=== PATIENT | female | born 1960 | race Caucasian/White ===

== ENCOUNTER → 2016-12-05 | Outpatient (CLI) | payer OTHER ==
--- NOTE | 2016-12-05 15:13 | REPMRS ---
Patient History The patient states she had a clinical breast exam in Patient has history of other cancer at age 53. No known family history of cancer. Benign excisional biopsy of the left breast, 2005. Took hormonal contraceptives for 4 years. Digital Woman Screen Mammo: December 05, 2016 - Exam #: [id number] Bilateral CC and MLO view(s) were taken. Technologist: Nancy Sykes, Technologist Prior study comparison: November 30, 2015, digital woman screen mammo performed at [facility]. November 03, 2014, digital woman screen mammo performed at [facility]. FINDINGS: There are scattered fibroglandular densities. There has been no change in the appearance of the mammogram from the prior studies. There is a moderate amount of residual fibroglandular tissue which is fairly symmetric. There is no interval development of dominant mass, architectural distortion, or clustered microcalcification suggestive of malignancy. There are scattered, small, benign calcifications of doubtful clinical significance. There is a stereotactic clip in upper outer quadrant left breast, unchanged. No significant changes when compared with prior studies. ASSESSMENT: BI-RADS/ACR category 2 mammogram. Benign finding(s). Recommendation Routine screening mammogram in 1 year (for women over age 40). This mammogram was interpreted with the aid of an FDA-approved computer-aided dectection system. A. Negative x-ray reports should not delay biopsy if a dominant or clinically suspicious mass is present. B. Four to eight percent of cancers are not identified by mammography. C. Adenosis and dense breast may obscure an underlying neoplasm. Electronically Signed By: Jens Platt MD 12/05/16 [id number]
== END ==
LOC: M WHC 12:52
PROVIDERS: ATTEND Obstetrics & Gynecology
DX: Z12.31 Encounter for screening mammogram for malignant neoplasm of breast (principal)

== ENCOUNTER → 2016-12-16 | Outpatient (REF) | payer OTHER ==
[2016-12-16 13:41] LABS: FOLATE 10.4 NG/ML; VITAMIN B12 LEVEL 991 PG/ML
[2016-12-16 13:49] LABS: BLOOD UREA NITROGEN 14 MG/DL (7-18); CREATININE FOR GFR 0.79 MG/DL (0.55-1.02); GLOMERULAR FILTRATION RATE > 60.0 (>51); TOTAL PROTEIN 7.4 GM/DL (6.4-8.2)
[2016-12-19 12:43] LABS: ALBUMIN 4.59 GM/DL (3.29-5.55); GAMMA GLOBULIN % 13.5 % (11.1-18.8)
[2016-12-20 00:06] LABS: VITAMIN E LEVEL 10.8 mg/L (5.3-16.8)
== END ==
LOC: M LABNEURO 13:01
PROVIDERS: ATTEND Psychiatry & Neurology Neurology
DX: Z13.1 Encounter for screening for diabetes mellitus (principal); Z13.228 Encounter for screening for other metabolic disorders

== ENCOUNTER → 2017-03-21 | Outpatient (CLI) | payer OTHER ==
--- NOTE | 2017-03-22 01:51 | REP ---
Clinical: Spondylosis. Technique: AP, lateral, bilateral oblique, flexion/extension and coned-down views of the lumbosacral spine. Findings: No acute fracture / compression injury. Grade 1 anterolisthesis at the L4-5 level of approximately 6.5 mm appears chronic with associated hypertrophic facet changes, minimal endplate sclerosis and subtle anterior spurring. Moderate multilevel degenerative changes include endplate sclerosis, disc space narrowing, and marginal osteophytes. Impression: Grade 1 anterolisthesis at the L4-5 level appears chronic. Early moderate multilevel degenerative changes. No acute fracture / compression injury. Signed by Tristan Herrera MD 03/22/2017 01:43 A
--- NOTE | 2017-03-22 05:05 | REP ---
Clinical: Spondylosis. Technique: AP, lateral, flexion/extension, bilateral oblique, and open-mouth views. Findings: Advanced degenerative disc osteophyte complex at the C5-6, C6-7 levels with moderate degenerative changes at the C4-5 and C7-T1 levels. Findings include osteophytosis, endplate sclerosis/irregularity and disc space narrowing. Reversal of normal lordosis on neutral view noted. No acute fracture / compression injury or subluxation. Oblique views demonstrate patent neural foramen. Open mouth view demonstrates normal C1-C2 articulation and odontoid process. Impression: Moderate and advanced degenerative disc osteophyte complexes. Signed by Tristan Herrera MD 03/22/2017 04:56 A
== END ==
LOC: M RAD 16:53 → M LAB 16:53
PROVIDERS: ATTEND Neurological Surgery
DX: M47.892 Other spondylosis, cervical region (principal)

== ENCOUNTER → 2017-05-11 | Outpatient (CLI) | payer OTHER ==
--- NOTE | 2017-05-12 10:23 | REP ---
REASON: Spondylosis and neck pain. COMPARISON: None. There is a cervical kyphosis. There is moderate to severe disc space height loss along with anterior and posterior osteophytic ridging seen at the C5-6 and C6-7 levels. The apex of the kyphosis is at C5-6. Air density is seen in the C5-6 disc space consistent with vacuum phenomena from degenerative disc disease. The facet joints are well aligned bilaterally. There is no evidence of an acute cervical spine fracture. At the C2-3 level, there is mild degenerative facet joint change on the left. There is no right foraminal narrowing or central canal stenosis. The afore mentioned arthritis changes do cause mild left foraminal stenosis. At the C3-4 level, there is no bony cause of foraminal narrowing or central canal stenosis. At the C4-5 level, mild degenerative facet joint changes are present bilaterally with mild degenerative uncovertebral joint changes. There is no bony cause of foraminal narrowing or central canal stenosis. At the C5-6 level, there is a broad based bulge seen in conjunction with posterior spondylotic bar formation. Degenerative facet and uncovertebral joint changes are present at this level bilaterally and the factors in concert are causing bilateral foraminal stenosis and central canal stenosis. The degree of cord compression cannot be determined by CT, however, the central canal does appear moderately stenotic. At the C6-7 level, a broad based annular bulge is present with a posterior spondylotic bar. Degenerative facet and uncovertebral joint changes are present bilaterally and the factors in concert are giving rise to mild bilateral foraminal stenosis and mild to moderate central canal stenosis, the extent of which cannot be precisely determined by this exam. At the C7-T1 level, there is no abnormality. CT cannot rule out an acute disc extrusion. I suspect at least covered discs due to disc osteophyte complex at the C5-6 and C6-7 levels. IMPRESSION: Chronic changes as described above. Signed by Gagan Booker DO 05/12/2017 10:51 A
--- NOTE | 2017-05-12 10:37 | REP ---
REASON: Back pain. COMPARISON: None. Vertebral body height is within normal limits throughout. There is a grade 1 L4 upon L5 spondylolisthesis. The disc spaces are symmetric and relatively well maintained throughout. Partial syndesmophyte formation is seen bilaterally at every level but particularly the upper lumbar level and seen in conjunction with mild anterior lipping. CT cannot rule out an acute disc extrusion. At the T12-L1 level, no abnormality is noted. At L1-2, there is no bony cause of foraminal narrowing or central canal stenosis. There is no evidence of a significant broad based annular bulge. At L2-3, there is no bony cause of foraminal narrowing or central canal stenosis. A mild broad based annular bulge is suspected with mild thickening of the ligamentum flava and slight degenerative facet joint change. At L3-4, there is a broad based annular bulge seen in conjunction with degenerative facet joint changes which are mild bilaterally with mild thickening of the ligamentum flava. No definite central canal stenosis or foraminal narrowing is seen by a bony cause. At L4-5, there is a broad based annular bulge which does appear to mildly compression the anterior thecal sac. There is no bony cause of foraminal narrowing. Degenerative facet joint changes are present at this level bilaterally with thickening of the ligamentum flava and mild central canal stenosis is suspected. At L5-S1, mild degenerative facet joint changes are present bilaterally with mild thickening of the ligamentum flava. A mild broad based annular bulge is suspected but there is no bony cause of foraminal narrowing or central canal stenosis and the anterior surface of the thecal sac does not appear to be compressed. IMPRESSION: Multilevel chronic changes as described above. Signed by Gagan Booker DO 05/12/2017 10:51 A
== END ==
LOC: M RAD 16:18
PROVIDERS: ATTEND Neurological Surgery
DX: R06.00 Dyspnea, unspecified (principal); M50.30 Other cervical disc degeneration, unspecified cervical region; M40.202 Unspecified kyphosis, cervical region
CPT/HCPCS: 70491; 71260; 72126; 72131; Q9967

== ENCOUNTER → 2017-05-11 | Outpatient (CLI) | payer OTHER ==
[~2017-05-11] MED LIST: ISOVUE-370 76% 100ML VIAL (Q9967) As Ordered ONE
--- NOTE | 2017-05-12 05:18 | REP ---
Clinical: Dyspnea. Dysphonia. Technique: Axial contrast enhanced images from the thoracic inlet to the upper abdomen using 100 ml Isovue 370 intravenous contrast material with coronal and sagittal re-formations. Comparison: 10/10/2012. Findings: Bilateral lung chavez are well-aerated, clear, and without consolidation, nodule or mass lesion. No pleural effusion/reaction or pneumothorax. Tracheobronchial tree is patent. Mediastinum demonstrates normal thoracic aorta and heart/pericardium. No aortic aneurysm, cardiomegaly or pericardial effusion appreciated. Few prominent mediastinal lymph nodes measure up to 9 mm short axis diameter and are relatively similar to prior examination/nonspecific. No mediastinal mass lesion identified. Surrounding musculoskeletal structures are intact and normal for age. No focal osseous abnormality noted. Limited evaluation of the upper abdomen demonstrates normal bilateral adrenal glands. Impression: Essentially normal contrast enhanced chest CT. No acute mediastinal or pleuroparenchymal process appreciated. Few mildly prominent lymph nodes in the mediastinum are similar to prior examination of 2011. Signed by Tristan Herrera MD 05/12/2017 05:10 A
--- NOTE | 2017-05-12 10:27 | REP ---
REASON FOR EXAM: Dysphonia. COMPARISON: None. CONTRAST: 100 mL Isovue 370. The suprahyoid neck: The parapharyngeal, retropharyngeal, pharyngomucosal, carotid, automation and controls instructor, and parotid spaces are within normal limits. The prevertebral and paraspinal components of the perivertebral space are within normal limits. There is spray artifact from dental amalgam obscuring multiple images. The infrahyoid neck: The aforementioned neck spaces along with the posterior cervical space are within normal limits. IMPRESSION: Findings, as described above, are within normal limits. Signed by Gagan Booker DO 05/12/2017 10:51 A
== END | disposition home or self-care (01) ==
LOC: M RAD 16:23
PROVIDERS: ATTEND Internal Medicine
DX: R06.00 Dyspnea, unspecified (principal)

== ENCOUNTER → 2017-12-07 | Outpatient (CLI) | payer OTHER | LOC: M WHC 06:50 | DX: Z12.31 Encounter for screening mammogram for malignant neoplasm of breast (principal); Z78.0 Asymptomatic menopausal state; Z98.890 Other specified postprocedural states; Z92.0 Personal history of contraception | CPT/HCPCS: 77067 ==

== ENCOUNTER → 2018-12-10 | Outpatient (CLI) | payer OTHER ==
--- NOTE | 2018-12-11 08:58 | REPMRS ---
Patient History The patient states she had a clinical breast exam in 10/02 No known family history of cancer. Benign excisional biopsy of the left breast, 2005. Took hormonal contraceptives for 4 years. Digital Woman Screen Mammo: December 10, 2018 - Exam #: [id number] Bilateral CC and MLO view(s) were taken. Technologist: Pauline Saldana, Technologist Prior study comparison: December 07, 2017, digital woman screen mammo performed at [facility]. December 05, 2016, digital woman screen mammo performed at [facility]. FINDINGS: There are scattered fibroglandular densities. A needle biopsy marker clip is again noted superiorly in the left breast. There is a moderate amount of residual fibroglandular tissue which is fairly symmetric. There is no interval development of dominant mass, architectural distortion, or clustered microcalcification typical of malignancy. There has been no change in the appearance of the mammogram from the prior studies. Assessment: BI-RADS/ACR category 2 mammogram. Benign Findings. Recommendation Routine screening mammogram of both breasts in 1 year (for women over age 40). This patient's Lifetime Breast Cancer RIsk is estimated at 11.5 %. This mammogram was interpreted with the aid of an FDA-approved computer-aided dectection system. Electronically Signed By: Efren Zuniga MD 12/11/18 [id number]
== END ==
LOC: M WHC 15:24
PROVIDERS: ATTEND Obstetrics & Gynecology
DX: Z12.31 Encounter for screening mammogram for malignant neoplasm of breast (principal); Z86.018 Personal history of other benign neoplasm; Z92.0 Personal history of contraception

== ENCOUNTER → 2019-05-31 | Outpatient (CLI) | payer OTHER ==
[2019-05-31 07:45] LABS: BASO # 0.1 10^3/uL (0.0-0.2); EOS # 0.2 10^3/uL (0.0-0.50); EOS % 2.7 % (0.0-3.0); HEMATOCRIT 41.8 % (36.0-47.0); HEMOGLOBIN 14.4 g/dl (12.0-15.5); LYMPH # 2.7 10^3/uL (1.5-4.5); LYMPH % 36.6 % (24.0-44.0); MEAN CORPUSCULAR HEMOGLOBIN 32.2 pg (27.0-33.0); MEAN CORPUSCULAR HGB CONC 34.4 g/dl (32.0-36.5); MEAN CORPUSCULAR VOLUME 93.5 fl (80.0-96.0); MONO # 0.8 10^3/uL (0.0-0.8); MONO % 10.2 % (0.0-5.0); NEUTROPHILS # 3.6 10^3/uL (1.8-7.7); NEUTROPHILS % 49.2 % (36.0-66.0); PLATELET COUNT, AUTOMATED 332 10^3/uL (150-450); RED BLOOD COUNT 4.47 10^6/uL (4.00-5.40); WHITE BLOOD COUNT 7.3 10^3/uL (4.0-10.0)
[2019-05-31 08:06] LABS: ALBUMIN 4.1 GM/DL (3.2-5.2); ALT/SGPT 32 U/L (12-78); BILIRUBIN,TOTAL 0.6 MG/DL (0.2-1.0); BLOOD UREA NITROGEN 14 MG/DL (7-18); CALCIUM LEVEL 9.4 MG/DL (8.5-10.1); CARBON DIOXIDE LEVEL 31 MEQ/L (21-32); CHLORIDE LEVEL 101 MEQ/L (98-107); CHOLESTEROL LEVEL 217 MG/DL (<200); CHOLESTEROL RISK RATIO 3.444 (<5); CREATININE FOR GFR 0.86 MG/DL (0.55-1.30); GLOMERULAR FILTRATION RATE > 60.0 (>51); GLUCOSE, FASTING 93 MG/DL (70-100); HDL CHOLESTEROL 63 MG/DL (>40); LDL CHOLESTEROL 138 MG/DL (<100); NON-HDL-C 154 MG/DL; POTASSIUM SERUM 4.3 MEQ/L (3.5-5.1); SODIUM LEVEL 138 MEQ/L (136-145); TOTAL PROTEIN 7.3 GM/DL (6.4-8.2); TRIGLYCERIDES LEVEL 82 MG/DL (<150)
== END ==
LOC: M LAB 06:53
PROVIDERS: ATTEND Nurse Practitioner Family
DX: I10 Essential (primary) hypertension (principal)

== ENCOUNTER → 2019-12-20 | Outpatient (CLI) | payer OTHER ==
--- NOTE | 2019-12-20 17:12 | REPMRS ---
Patient History The patient states she had a clinical breast exam in November 2019.No known family history of cancer. Benign excisional biopsy of the left breast, 2006. Took hormonal contraceptives for 4 years. Digital Woman Screen Mammo: December 20, 2019 - Exam #: [id number] Bilateral CC and MLO view(s) were taken. Technologist: Ruth Pineda, Technologist Prior study comparison: December 10, 2018, bilateral digital woman screen mammo performed at [facility]. December 07, 2017, digital woman screen mammo performed at [facility]. December 05, 2016, digital woman screen mammo performed at [facility]. FINDINGS: There are scattered fibroglandular densities. There is a needle biopsy marker clip again noted in the left breast. There has been no change in the appearance of the mammogram from the prior studies. There is a mild amount of scattered fibroglandular density which is fairly symmetric. There is no interval development of dominant mass, architectural distortion, or grouped microcalcification suggestive of malignancy. 3-D tomosynthesis shows no additional findings. Assessment: BI-RADS/ACR category 2 mammogram. Benign Findings. Recommendation Routine screening mammogram of both breasts in 1 year (for women over age 40). This patient's Lifetime Breast Cancer Risk is estimated at 11.2 %. This mammogram was interpreted with the aid of an FDA-approved computer-aided dectection system. Electronically Signed By: Efren Zuniga MD 12/20/19 [id number]
--- NOTE | 2019-12-27 09:29 | DEXA ---
AP SPINE L1 - L4 1.503 -2.5 3.7 LT FEMUR TOTAL 0.984 -0.2 0.7 LT NECK 0.953 -0.6 0.6 RT FEMUR TOTAL 1.068 0.5 1.4 RT NECK 1.036 0.0 1.2 TOTAL BODY TOTAL OTHER COMMENTS: Normal bone densitometry of the spine and hips. The density of the spine has decreased 1.2% since 08/11/2010. The density of the left hip has decreased 6.4% since 08/11/2010. The density of the right hip has decreased 5.2% since 08/11/2010. FOLLOW-UP: Recommendation for the next bone density exam: 5 years. KAN
== END ==
LOC: M WHC 14:27
PROVIDERS: ATTEND Obstetrics & Gynecology
DX: Z12.31 Encounter for screening mammogram for malignant neoplasm of breast (principal); Z13.820 Encounter for screening for osteoporosis

== ENCOUNTER → 2020-02-28 | Outpatient (CLI) | payer OTHER ==
--- NOTE | 2020-02-28 10:32 | REPPI ---
KNEE: REASON FOR EXAM: Atraumatic pain. FINDINGS: The compartments are symmetric and relatively well maintained. There is no acute fracture or destructive osseous lesion. Electronically Signed by Gagan Booker DO 02/28/2020 10:58 A
== END ==
LOC: M PLAIMG 08:49
PROVIDERS: ATTEND Physician Assistant Medical
DX: M25.562 Pain in left knee (principal)
CPT/HCPCS: 73564; G0463

== ENCOUNTER → 2020-08-31 | Outpatient (CLI) | payer OTHER ==
[2020-08-31 07:09] LABS: BASO # 0.1 10^3/uL (0.0-0.2); BASO % 0.9 % (0.0-1.0); EOS # 0.3 10^3/uL (0.0-0.5); HEMATOCRIT 41.6 % (36.0-47.0); HEMOGLOBIN 14.1 g/dl (12.0-15.5); LYMPH # 3.1 10^3/uL (1.5-5.0); LYMPH % 40.1 % (24.0-44.0); MEAN CORPUSCULAR HEMOGLOBIN 31.5 pg (27.0-33.0); MEAN CORPUSCULAR HGB CONC 33.9 g/dl (32.0-36.5); MEAN CORPUSCULAR VOLUME 92.9 fl (80.0-96.0); MONO # 0.8 10^3/uL (0.0-0.8); MONO % 10.1 % (0.0-5.0); NEUTROPHILS # 3.5 10^3/uL (1.5-8.5); NEUTROPHILS % 44.6 % (36.0-66.0); PLATELET COUNT, AUTOMATED 319 10^3/uL (150-450); RED BLOOD COUNT 4.48 10^6/uL (4.00-5.40); WHITE BLOOD COUNT 7.8 10^3/uL (4.0-10.0)
[2020-08-31 07:33] LABS: ALT/SGPT 33 U/L (12-78); BILIRUBIN,TOTAL 0.7 MG/DL (0.2-1.0); BLOOD UREA NITROGEN 19 MG/DL (7-18); CALCIUM LEVEL 9.1 MG/DL (8.8-10.2); CARBON DIOXIDE LEVEL 31 MEQ/L (21-32); CHLORIDE LEVEL 101 MEQ/L (98-107); CHOLESTEROL LEVEL 212 MG/DL (<200); CHOLESTEROL RISK RATIO 3.655 (<5); CREATININE FOR GFR 0.92 MG/DL (0.55-1.30); GLOMERULAR FILTRATION RATE > 60.0 (>45); GLUCOSE, FASTING 103 MG/DL (70-100); HDL CHOLESTEROL 58 MG/DL (>40); LDL CHOLESTEROL 136 MG/DL (<100); NON-HDL-C 154 MG/DL; POTASSIUM SERUM 3.8 MEQ/L (3.5-5.1); SODIUM LEVEL 137 MEQ/L (136-145); TOTAL PROTEIN 7.3 GM/DL (6.4-8.2); TRIGLYCERIDES LEVEL 91 MG/DL (<150)
== END ==
LOC: M LAB 06:21
PROVIDERS: ATTEND Nurse Practitioner Family
DX: I10 Essential (primary) hypertension (principal); Z13.220 Encounter for screening for lipoid disorders

== ENCOUNTER → 2020-12-22 | Outpatient (CLI) | payer OTHER ==
--- NOTE | 2020-12-22 09:38 | REPMRS ---
Patient History The patient states she had a clinical breast exam in 11/2020 Patient is postmenopausal and has history of other cancer at age 53. No known family history of cancer. Benign excisional biopsy of the left breast, 2006. Took hormonal contraceptives for 4 years. Digital Woman Screen Mammo: December 22, 2020 - Exam #: [id number] Bilateral CC and MLO view(s) were taken. Technologist: Pauline Saldana, Technologist Prior study comparison: December 20, 2019, bilateral digital woman screen mammo performed at [facility]. December 10, 2018, bilateral digital woman screen mammo performed at [facility]. December 07, 2017, digital woman screen mammo performed at [facility]. FINDINGS: There are scattered fibroglandular densities. The Volpara volumetric breast density category is:B. There is a needle biopsy marker clip in the left breast. There has been no change in the appearance of the mammogram from the prior studies. There is a mild amount of scattered fibroglandular density which is fairly symmetric. There is no interval development of dominant mass, architectural distortion, or grouped microcalcification suggestive of malignancy. 3-D tomosynthesis shows no additional findings. Assessment: BI-RADS/ACR category 2 mammogram. Benign Findings. Recommendation Routine screening mammogram of both breasts in 1 year (for women over age 40). This patient's [facility] Lifetime Breast Cancer Risk is estimated at 10.8 %. This mammogram was interpreted with the aid of an FDA-approved computer-aided dectection system. Electronically Signed By: Efren Zuniga MD 12/22/20 [id number]
== END ==
LOC: M WHC 06:54
PROVIDERS: ATTEND Obstetrics & Gynecology
DX: Z12.31 Encounter for screening mammogram for malignant neoplasm of breast (principal); Z78.0 Asymptomatic menopausal state; Z85.9 Personal history of malignant neoplasm, unspecified

== ENCOUNTER → 2021-11-01 | Outpatient (CLI) | payer OTHER | LOC: M LABSMTC 13:08 | PROVIDERS: ATTEND Pediatrics | DX: Z20.822 Contact with and (suspected) exposure to COVID-19 (principal) | CPT/HCPCS: C9803; U0003 ==

== ENCOUNTER → 2021-11-16 | Outpatient (CLI) | payer OTHER ==
[2021-11-16 06:35] LABS: BASO # 0.1 10^3/uL (0.0-0.2); BASO % 0.8 % (0.0-1.0); EOS # 0.2 10^3/uL (0.0-0.5); EOS % 2.3 % (0.0-3.0); HEMOGLOBIN 14.1 g/dl (12.0-15.5); LYMPH # 3.1 10^3/uL (1.5-5.0); LYMPH % 35.9 % (24.0-44.0); MEAN CORPUSCULAR HEMOGLOBIN 30.9 pg (27.0-33.0); MEAN CORPUSCULAR HGB CONC 34.4 g/dl (32.0-36.5); MEAN CORPUSCULAR VOLUME 89.7 fl (80.0-96.0); MONO # 0.8 10^3/uL (0.0-0.8); NEUTROPHILS # 4.4 10^3/uL (1.5-8.5); NEUTROPHILS % 51.8 % (36.0-66.0); PLATELET COUNT, AUTOMATED 332 10^3/uL (150-450); RED BLOOD COUNT 4.57 10^6/uL (4.00-5.40); WHITE BLOOD COUNT 8.6 10^3/uL (4.0-10.0)
[2021-11-16 07:25] LABS: ALT/SGPT 32 U/L (12-78); BILIRUBIN,TOTAL 0.5 MG/DL (0.2-1.0); BLOOD UREA NITROGEN 29 MG/DL (7-18); CALCIUM LEVEL 9.8 MG/DL (8.8-10.2); CARBON DIOXIDE LEVEL 31 MEQ/L (21-32); CHLORIDE LEVEL 103 MEQ/L (98-107); CHOLESTEROL LEVEL 197 MG/DL (<200); CREATININE FOR GFR 0.82 MG/DL (0.55-1.30); GLOMERULAR FILTRATION RATE > 60.0 (>45); GLUCOSE, FASTING 107 MG/DL (70-100); HDL CHOLESTEROL 49 MG/DL (>40); LDL CHOLESTEROL 114 MG/DL (<100); NON-HDL-C 148 MG/DL; POTASSIUM SERUM 3.7 MEQ/L (3.5-5.1); SODIUM LEVEL 141 MEQ/L (136-145); TOTAL PROTEIN 7.5 GM/DL (6.4-8.2); TRIGLYCERIDES LEVEL 170 MG/DL (<150)
[2021-11-16 09:12] LABS: TOTAL 25(OH) VITAMIN D 21.2 NG/ML (30.0-100.0)
== END ==
LOC: M LAB 06:14
PROVIDERS: ATTEND Nurse Practitioner Family
DX: Z00.00 Encounter for general adult medical examination without abnormal findings (principal)

== ENCOUNTER 2022-09-23 08:30 | Day surgery (SDC) | payer OTHER ==
[~2022-09-23] VITALS: Ht 157.5 cm; Wt 70.8 kg
[~2022-09-23 08:30] MED LIST changes: +CHLO125TA PO; -ISOVUE-370 76% 100ML VIAL (Q9967) As Ordered ONE; +LISI10TA22 PO; +NS 1,000 ML IV ONE; +OYST500T12 PO
[2022-09-23] MEDS ORDERED: propofoL 200 MG/20 ML VIAL As Ordered ONE (09:05)
[2022-09-23] MEDS ORDERED: fentaNYL 100 MCG/2 ML INJECTION As Ordered ONE (10:16)
[2022-09-23 10:30] VITALS: BP 140/84
== END 2022-09-23 10:40 | disposition home or self-care (01) ==
LOC: M OPP 08:30
PROVIDERS: ATTEND Internal Medicine Gastroenterology
DX: Z12.11 Encounter for screening for malignant neoplasm of colon (principal); D12.6 Benign neoplasm of colon, unspecified; K64.4 Residual hemorrhoidal skin tags; K64.8 Other hemorrhoids; K57.30 Diverticulosis of large intestine without perforation or abscess without bleeding; Z79.899 Other long term (current) drug therapy; Z87.891 Personal history of nicotine dependence; I10 Essential (primary) hypertension; Z85.828 Personal history of other malignant neoplasm of skin

== ENCOUNTER → 2023-01-13 | Outpatient (CLI) | payer OTHER ==
[~2023-01-13] MED LIST changes: -NS 1,000 ML IV ONE
== END ==
LOC: M WHC 09:14
PROVIDERS: ATTEND Obstetrics & Gynecology
DX: Z12.31 Encounter for screening mammogram for malignant neoplasm of breast (principal)

== ENCOUNTER 2023-09-11 13:44 | Emergency (ER) | payer OTHER ==
[~2023-09-11] VITALS: Ht 160 cm; Wt 70.6 kg
[2023-09-11 13:46] VITALS: BP 139/84; TEMP 97.5; O2SAT 97
== END 2023-09-11 15:28 | disposition left against medical advice (07) ==
LOC: M ED 13:44
DX: Z53.21 Procedure and treatment not carried out due to patient leaving prior to being seen by health care provider (principal)

== ENCOUNTER 2023-11-20 12:28 | Emergency (ER) | payer OTHER ==
[~2023-11-20] VITALS: Ht 160 cm; Wt 71.6 kg
[2023-11-20 17:04] LABS: BASO # 0.1 10^3/uL (0.0-0.2); BASO % 0.7 % (0.0-1.0); EOS # 0.1 10^3/uL (0.0-0.5); HEMATOCRIT 40.7 % (36.0-47.0); LYMPH # 3.7 10^3/uL (1.5-5.0); LYMPH % 40.5 % (24.0-44.0); MEAN CORPUSCULAR HEMOGLOBIN 31.6 pg (27.0-33.0); MEAN CORPUSCULAR HGB CONC 34.4 g/dl (32.0-36.5); MEAN CORPUSCULAR VOLUME 91.9 fl (80.0-96.0); MONO # 0.8 10^3/uL (0.0-0.8); MONO % 8.4 % (2.0-8.0); NEUTROPHILS # 4.5 10^3/uL (1.5-8.5); NEUTROPHILS % 49.2 % (36.0-66.0); PLATELET COUNT, AUTOMATED 323 10^3/uL (150-450); RED BLOOD COUNT 4.43 10^6/uL (4.00-5.40); WHITE BLOOD COUNT 9.1 10^3/uL (4.0-10.0)
[2023-11-20 17:36] LABS: ALKALINE PHOSPHATASE 82 U/L (46-116); ALT/SGPT 23 U/L (7.0-40); AST/SGOT 15 U/L (<34); BILIRUBIN,DIRECT < 0.1 MG/DL (<0.4); BILIRUBIN,TOTAL 0.3 MG/DL (0.3-1.2); BLOOD UREA NITROGEN 9 MG/DL (9-23); CALCIUM LEVEL 9.4 MG/DL (8.3-10.6); CARBON DIOXIDE LEVEL 29 MMOL/L (20-31); CHLORIDE LEVEL 103 MMOL/L (98-107); CREATININE FOR GFR 0.64 MG/DL (0.55-1.30); GLOMERULAR FILTRATION RATE > 60.0 (>45); GLUCOSE, FASTING 79 MG/DL (74-106); POTASSIUM SERUM 3.6 MMOL/L (3.5-5.1); SODIUM LEVEL 139 MMOL/L (136-145); TOTAL PROTEIN 7.3 G/DL (5.7-8.2)
[2023-11-20 17:38] LABS: FREE T4 1.19 NG/DL (0.89-1.76); THYROID STIMULATING HORMONE 3.625 uIU/ML (0.55-4.78)
[2023-11-20 18:39] VITALS: BP 117/74; TEMP 97.7; O2SAT 96
== END 2023-11-20 18:43 | disposition home or self-care (01) ==
LOC: M ED 12:28
DX: F45.0 Somatization disorder (principal); I10 Essential (primary) hypertension; Z85.828 Personal history of other malignant neoplasm of skin; Z82.49 Family history of ischemic heart disease and other diseases of the circulatory system; Z79.899 Other long term (current) drug therapy

== ENCOUNTER → 2024-02-02 | Outpatient (CLI) | payer OTHER | LOC: M WHC 08:48 | PROVIDERS: ATTEND Obstetrics & Gynecology | DX: Z12.31 Encounter for screening mammogram for malignant neoplasm of breast (principal); Z13.820 Encounter for screening for osteoporosis ==

== ENCOUNTER → 2024-03-05 | Outpatient (REF) | payer OTHER | LOC: M SFHCDERM 17:34 | PROVIDERS: ATTEND Physician Assistant | DX: L57.0 Actinic keratosis (principal) ==

== ENCOUNTER → 2024-10-23 | Outpatient (CLI) | payer OTHER ==
[2024-10-23 07:40] LABS: HEMOGLOBIN A1c 5.9 % (4.0-6.0)
[2024-10-23 07:56] LABS: ALKALINE PHOSPHATASE 91 U/L (35-104); ALT/SGPT 39 U/L (7.0-40); AST/SGOT 20 U/L (<34); BILIRUBIN,TOTAL 0.6 MG/DL (0.3-1.2); BLOOD UREA NITROGEN 15 MG/DL (9-23); CALCIUM LEVEL 10.2 MG/DL (8.3-10.6); CARBON DIOXIDE LEVEL 32 MMOL/L (20-31); CHLORIDE LEVEL 101 MMOL/L (98-107); CHOLESTEROL LEVEL 222 MG/DL (<200); CREATININE FOR GFR 0.73 MG/DL (0.55-1.30); GLOMERULAR FILTRATION RATE > 60.0 (>45); GLUCOSE, FASTING 102 MG/DL (74-106); HDL CHOLESTEROL 48.2 MG/DL (>40); LDL CHOLESTEROL 146.8 MG/DL (<100); NON-HDL-C 173.8 MG/DL; SODIUM LEVEL 140 MMOL/L (136-145); TOTAL PROTEIN 7.4 G/DL (5.7-8.2); TRIGLYCERIDES LEVEL 135 MG/DL (<150)
== END ==
LOC: M LAB 06:54
PROVIDERS: ATTEND Family Medicine
DX: R73.03 Prediabetes (principal); E66.3 Overweight

== ENCOUNTER → 2024-11-14 | Outpatient (CLI) | payer OTHER | LOC: M RAD 12:41 | PROVIDERS: ATTEND Family Medicine | DX: M25.422 Effusion, left elbow (principal); M25.522 Pain in left elbow; D17.22 Benign lipomatous neoplasm of skin and subcutaneous tissue of left arm ==

== ENCOUNTER → 2025-02-03 | Outpatient (CLI) | payer OTHER | LOC: M WHC 08:20 | PROVIDERS: ATTEND Obstetrics & Gynecology | DX: Z12.31 Encounter for screening mammogram for malignant neoplasm of breast (principal); R92.323 Mammographic fibroglandular density, bilateral breasts ==